=== PATIENT | male | born 1940 | race Caucasian/White ===

== ENCOUNTER 2019-02-13 10:49 | Emergency (ER) | payer OTHER ==
[~2019-02-13] VITALS: Ht 172.7 cm; Wt 82.0 kg
[~2019-02-13 10:49] MED LIST: AMLO10TA80 PO; ASPI325T85 MT; ATEN50TA PO; BENA40TA66 PO; LIP40 PO; PANT40TA4 MT
[2019-02-13] MEDS ORDERED: HYDROCODONE/ACETAMINOPHEN 5/325MG TABLET PO ONE (11:30)
[2019-02-13] MEDS ORDERED: IBUPROFEN 400MG TABLET PO ONE (11:30)
[2019-02-13 13:42] VITALS: BP 152/70
== END 2019-02-13 13:45 | disposition home or self-care (01) ==
LOC: ER 10:58
DX: S21.201A Unspecified open wound of right back wall of thorax without penetration into thoracic cavity, initial encounter (principal); M54.5 Low back pain; I51.9 Heart disease, unspecified; I11.9 Hypertensive heart disease without heart failure; I25.10 Atherosclerotic heart disease of native coronary artery without angina pectoris; Z79.899 Other long term (current) drug therapy; Z79.82 Long term (current) use of aspirin; Z87.891 Personal history of nicotine dependence; X58.XXXA Exposure to other specified factors, initial encounter; Y93.89 Activity, other specified; Y92.89 Other specified places as the place of occurrence of the external cause; Y99.8 Other external cause status
CPT/HCPCS: 72110; 99283